=== PATIENT | female | born 1930 | race Caucasian/White ===

== ENCOUNTER 2017-05-17 17:40 | Emergency (ER) | payer OTHER ==
[~2017-05-17] VITALS: Ht 165.1 cm; Wt 52.3 kg
[2017-05-17] MEDS ORDERED: SODIUM CHLORIDE 0.9% 1,000ML IVBOLUS ONE (18:00)
[2017-05-17] MEDS ORDERED: ASPIRIN 81 MG TABLET CHEW PO ONE (18:00)
[2017-05-17] MEDS ORDERED: SODIUM CHLORIDE FLUSH 10ML SYR IVF ONE (18:00)
[2017-05-17] MEDS ORDERED: ACETAMINOPHEN 500 MG TABLET PO ONE (18:30)
[2017-05-17] MEDS ORDERED: ACETAMINOPHEN 500 MG TABLET ONE (18:32)
[2017-05-17 18:42] LABS: ASPARTATE AMINO TRANSFERASE 28 U/L (15-37); BLOOD UREA NITROGEN 13 mg/dL (7-18)
[2017-05-17 18:47] LABS: IS PT STATUS REG ER OR PRE ER? YES
[2017-05-17 19:10] LABS: PATH.CAST-FLAG NOT PRESENT; SPERM-FLAG NOT PRESENT; SRC-FLAG NOT PRESENT; XTAL-FLAG NOT PRESENT; YLC-FLAG NOT PRESENT
[2017-05-17 19:58] VITALS: BP 121/49
== END 2017-05-17 20:01 | disposition home or self-care (01) ==
LOC: ED 19:45
DX: N30.00 Acute cystitis without hematuria (principal); R50.9 Fever, unspecified; R05 Cough
CPT/HCPCS: 36415; 71010; 80053; 81001; 83605; 84145; 84484; 85025; 85610; 85730; 87040; 87086; 93005; 96360; 96361; 99285; J7030